=== PATIENT | male | born 1970 | race Caucasian/White ===

== ENCOUNTER 2017-08-08 07:14 | Observation (INO) | payer OTHER ==
[2017-08-08] MEDS ORDERED: SODIUM CHLORIDE 0.9% 1,000 ML IV STA (07:49)
[2017-08-08] MEDS: SODIUM CHLORIDE 0.9% 1,000 ML IV STA ×2 (08:02→12:31)
[2017-08-08] MEDS: ONDANSETRON 4 MG/2 ML VIAL IVP STA ×2 (08:03→08:43)
[2017-08-08] MEDS: MORPHINE SULFATE 2 MG/ML SYRINGE IV STA ×3 (08:04→10:51)
[2017-08-08 08:06] LABS: Basophils % (A) 1 %; Eosinophils # (A) 0.1 k/uL (0-0.7); Eosinophils % (A) 2 %; HCT 46.1 % (39.0-53.0); HGB 15.6 gm/dL (13.0-17.5); Lymphocytes # (A) 1.1 k/uL (1.0-4.8); Lymphocytes % (A) 18 %; MCH 29.6 pg (25.0-35.0); MCHC 33.9 g/dL (31.0-37.0); MCV 87.4 fL (80.0-100.0); Mean Platelet Volume 6.8; Monocytes # (A) 0.4 k/uL (0-1.0); Monocytes % (A) 6 %; Neutrophils # (A) 4.1 k/uL (1.3-7.7); Neutrophils % (A) 71 %; Platelet Count 174 k/uL (150-450); RBC 5.27 m/uL (4.30-5.90); RDW 13.4 % (11.5-15.5); WBC 5.8 k/uL (3.8-10.6)
[2017-08-08 08:17] LABS: ALT 54 U/L (21-72); AST 34 U/L (17-59); Albumin 4.3 g/dL (3.5-5.0); Alkaline Phosphatase 84 U/L (38-126); Amylase 67 U/L (30-110); Anion Gap 13 mmol/L; Blood Urea Nitrogen 16 mg/dL (9-20); Calcium 9.5 mg/dL (8.4-10.2); Carbon Dioxide 23 mmol/L (22-30); Chloride 104 mmol/L (98-107); Glucose 143 mg/dL (74-99); Lipase 281 U/L (23-300); Potassium 3.9 mmol/L (3.5-5.1); Sodium 140 mmol/L (137-145); Total Bilirubin 0.9 mg/dL (0.2-1.3); Total Protein 6.8 g/dL (6.3-8.2)
--- NOTE | 2017-08-08 08:29 | XR ---
EXAMINATION TYPE: XR abdomen acute w cxr DATE OF EXAM: 08/08/2017 COMPARISON: NONE HISTORY: Right flank pain, constipation and history of colon resection TECHNIQUE: Single view chest radiograph and 2 view abdominal radiographs were performed. FINDINGS: CHEST: Median sternotomy wires are present. No focal consolidation, pleural effusion or pneumothorax. Cardiomediastinal silhouette is within normal limits. Osseous structures are intact. There is dehisc ence of some of the mediastinal wires incidentally noted. ABDOMEN: Surgical clips are seen within the left hemipelvis and right upper quadrant. No evidence of dilated large or small bowel. No differential air-fluid levels. Few air-filled nondilated loops of sm all bowel are clustered within the left lower quadrant. These are again nondilated and nonspecific. N o pneumoperitoneum. No abnormal calcifications within the abdomen or pelvis. Phleboliths are noted wi thin the low pelvis. Mild femoral acetabular arthropathy. Probable left femoral bone islands. IMPRESSION: 1. No acute cardiopulmonary process. 2. Postsurgical changes of the abdomen. Nonobstructive bowel gas pattern.
[2017-08-08] MEDS ORDERED: SODIUM CHLORIDE 0.9% 1,000 ML IV ONE ×2 (09:11→13:04)
--- NOTE | 2017-08-08 09:14 | ED ---
Abdominal Pain HPI - General Chief Complaint: Abdominal Pain Stated Complaint: Back Pain Time Seen by Provider: 08/08/17 07:46 Source: patient Mode of arrival: wheelchair Limitations: no limitations - History of Present Illness Initial Comments: 46 years old male comes in with severe abdominal pain and right flank pain and pain in the right lower quadrant area it's 10 over 10 he is very nauseous and is not even able to talk he does have a history of gallbladder disease and status post cholecystectomy history of adrenal mass and colon surgery. No headaches no neck neck stiffness no chest pain or shortness of breath is at this point - Related Data Home Medications Medication Instructions Recorded Confirmed Atorvastatin [Lipitor] 20 mg PO HS 08/08/17 08/08/17 Cholecalciferol [Vitamin D3] 5,000 unit PO DAILY 08/08/17 08/08/17 Gabapentin [Neurontin] 300 mg PO BID 08/08/17 08/08/17 Allergies Allergy/AdvReac Type Severity Reaction Status Date / Time No Known Allergies Allergy Verified 08/08/17 07:44 Review of Systems ROS Statement: Those systems with pertinent positive or pertinent negative responses have been documented in the HPI. ROS Other: All systems not noted in ROS Statement are negative. Past Medical History Additional Past Medical History / Comment(s): Myesthenia Gravis, Spinal stenosis History of Any Multi-Drug Resistant Organisms: None Reported Past Surgical History: Cholecystectomy Additional Past Surgical History / Comment(s): Attenuated FAP, colon removed, right adrenal gland removed Past Psychological History: No Psychological Hx Reported Smoking Status: Never smoker Past Alcohol Use History: None Reported General Exam - General Exam Comments Initial Comments: General: The patient is awake and alert, in severe distress pain is 10 over 10 Skin: Skin is warm and dry and no rashes or lesions are noted. Eye: Pupils are equal, round and reactive to light, extra-ocular movements are intact; there is normal conjunctiva bilaterally. Ears, nose, mouth and throat: There are moist mucous membranes and no oral lesions. Neck: The neck is supple, there is no tenderness or JVD. Cardiovascular: There is a regular rate and rhythm. No murmur, rub or gallop is appreciated. Respiratory: To auscultation bilateral, no wheezing no rhonchi no distress respiratory shah noticed Gastrointestinal: Very tender in the right Paraumbilical area him a mildly tender over the right flank area positive bowel sounds no guarding no rebounds Back: There is no tenderness to palpation in the midline. There is no obvious deformity. Musculoskeletal: Normal ROM, no tenderness, There is no pedal edema. There is no calf tenderness or swelling. No cords were appreciated. Neurological: CN II-XII intact, Cranial nerves III through XII are intact. There are no obvious motor or sensory deficits. Coordination appears grossly intact. Speech is normal. Psychiatric: Cooperative, appropriate mood & affect, normal judgment. Limitations: no limitations Course Vital Signs 08/08/17 08/08/17 07:25 08:45 Temperature 97.9 F Pulse Rate 61 77 Respiratory 18 20 Rate Blood Pressure 121/79 137/79 O2 Sat by Pulse 99 99 Oximetry Shouldn't is reassessed at 11/27/2013 T he still in a lot of pain on the right side of the abdomen CT of the abdomen and pelvis was reviewed noticed right adrenal gland surgically removed left adrenal gland has gotten bigger in size compared to the old exam CBC looks fine and lactate is 2.3, BS metabolic panel looks normal gallbladder surgically removed in the past. Centering he has increased pain him can inquire and give him some more morphine and I plan to speak with the Dr. Delmar Mendenhall his primary care physician considering his pain he would need to be admitted with a surgical consult. She has gotten his care at the [facility] in the past Medical Decision Making - Lab Data Result diagrams: 08/08/17 07:55 08/08/17 07:55 Lab Results 08/08/17 08/08/17 08/08/17 Range/Units 07:55 07:55 07:55 WBC 5.8 (3.8-10.6) k/uL RBC 5.27 (4.30-5.90) m/uL Hgb 15.6 (13.0-17.5) gm/dL Hct 46.1 (39.0-53.0) % MCV 87.4 (80.0-100.0) fL MCH 29.6 (25.0-35.0) pg MCHC 33.9 (31.0-37.0) g/dL RDW 13.4 (11.5-15.5) % Plt Count 174 (150-450) k/uL Neutrophils % 71 % Lymphocytes % 18 % Monocytes % 6 % Eosinophils % 2 % Basophils % 1 % Neutrophils # 4.1 (1.3-7.7) k/uL Lymphocytes # 1.1 (1.0-4.8) k/uL Monocytes # 0.4 (0-1.0) k/uL Eosinophils # 0.1 (0-0.7) k/uL Basophils # 0.0 (0-0.2) k/uL Sodium 140 (137-145) mmol/L Potassium 3.9 (3.5-5.1) mmol/L Chloride 104 (98-107) mmol/L Carbon Dioxide 23 (22-30) mmol/L Anion Gap 13 mmol/L BUN 16 (9-20) mg/dL Creatinine 0.92 (0.66-1.25) mg/dL Est GFR (CKD-EPI)AfAm >90 (>60 ml/min/1.73 sqM) Est GFR (CKD-EPI)NonAf >90 (>60 ml/min/1.73 sqM) Glucose 143 H (74-99) mg/dL Plasma Lactic Acid José 2.3 H* (0.7-2.0) mmol/L Calcium 9.5 (8.4-10.2) mg/dL Total Bilirubin 0.9 (0.2-1.3) mg/dL AST 34 (17-59) U/L ALT 54 (21-72) U/L Alkaline Phosphatase 84 (38-126) U/L Total Protein 6.8 (6.3-8.2) g/dL Albumin 4.3 (3.5-5.0) g/dL Amylase 67 (30-110) U/L Lipase 281 (23-300) U/L Disposition Clinical Impression: Abdominal pain Disposition: ADMITTED IP TO THIS HOSP Referrals: Delmar Mendenhall DO [Primary Care Provider] - 1-2 days
--- NOTE | 2017-08-08 10:25 | CT ---
EXAMINATION TYPE: CT abdomen pelvis w con DATE OF EXAM: 08/08/2017 COMPARISON: 01/01/2012 INDICATION: Flank pain, abdominal pain DLP: 1193.0 mGycm, Automated exposure control for dose reduction was used. CONTRAST: 100 mL of Isovue 300. Study performed without Oral Contrast TECHNIQUE: Axial images were obtained from above the diaphragm to the pubic rami in the axial plane a t 5 mm thick sections. Reconstructed images are reviewed on the computer in the coronal plane. FINDINGS: Limited CT sections are obtained the lung bases. The lung bases are clear. CT ABDOMEN: Liver: Normal Spleen: Normal. Splenule is medial to the spleen and anterior lateral to the spleen. Pancreas: Normal Adrenal glands: Left adrenal gland is a bilobed with somewhat heterogenous lower density centrally. T he lobes measure 1.7 and 1.4 cm in size. The right adrenal gland appears absent. Multiple surgical cl ips are present. Gallbladder: Surgically absent. Kidneys: No masses are evident. No hydronephrosis is present. There is a cyst on the medial upper l eft kidney measuring 1.8 cm and 4 Hounsfield units. A peripelvic cyst is suspected in the upper pole left kidney measuring approximately 2.8 cm. Right kidney appears to have a small cortical renal cyst measuring 1.1 cm and 15 Hounsfield units. A 0.2 cm nonobstructing superior medial left renal stone i s present. Aorta: Normal Inferior vena cava: Normal. CT PELVIS: Visualized Loops of bowel within the abdomen and pelvis are normal. Near complete colectomy has bee n performed. Postsurgical changes at the rectosigmoid junction. Appendix: Not identified Urinary bladder: Normal. Genitourinary structures: Prostate is prominent. Osseous structures: No suspicious lytic or sclerotic lesions. COMPARISON: The right adrenal gland has been resected over the interval. The left adrenal gland has i ncreased in size over the interval. IMPRESSIONS: 1. Increasing size of a multilobed left adrenal gland. 2. Status post right adrenal gland resection
[2017-08-08] MEDS ORDERED: ACETAMINOPHEN TAB 325 MG TAB PO PRN (10:51)
[2017-08-08] MEDS ORDERED: ONDANSETRON 4 MG/2 ML VIAL IVP PRN ×2 (10:51→12:28)
[2017-08-08] MEDS ORDERED: MORPHINE SULFATE 2 MG/ML SYRINGE IV PRN (10:51)
[2017-08-08] MEDS ORDERED: NALOXONE 0.4 MG/ML 1 ML VIAL IV PRN (10:51)
[2017-08-08 11:05] LABS: Appearance,Urine Clear (Clear); Bilirubin,Urine Negative (Negative); Blood,Urine Large (Negative); Color,Urine Yellow; Glucose,Urine (UA) Negative (Negative); Ketones,Urine 1+ (Negative); Leukocyte Esterase,Urine Negative (Negative); Mucus,Urine Rare /hpf; Nitrite,Urine Negative (Negative); PH, Urine 7.5 (5.0-8.0); Protein,Urine Trace (Negative); RBC,Urine >182 /hpf (0-5); Specific Gravity,Urine 1.034 (1.001-1.035); Urobilinogen,Urine <2.0 mg/dL (<2.0); WBC,Urine 1 /hpf (0-5)
[2017-08-08] MEDS: SODIUM CHLORIDE 0.9% 1,000 ML IV SCH ×2 (14:20→20:29)
[2017-08-08] MEDS ORDERED: KETOROLAC 30 MG/ML 1 ML VIAL IVP STA (16:09)
--- NOTE | 2017-08-08 16:17 | P.GSCN ---
History of Present Illness Consult date: 08/08/17 History of present illness: 46-year-old male presents to the emergency department with complaints of right flank and right abdominal pain. He states that this pain suddenly began this morning and was not resolving. He does have a medical history significant for FAP. He has had a near total colectomy, cholecystectomy and adrenalectomy secondary to this. He states he is followed very closely at the [facility] for [facility]. He states that since admission, his pain has improved. He denies any nausea and vomiting. He denies any change in bowel function. He denies any febrile episodes. He denies any change in urinary frequency. He does admit to having darker urine recently. He denies any shortness of breath or chest pain. He has no additional complaints at this time. CT of the abdomen and pelvis was performed in the emergency department with no significant finding for the acute abdominal pain. He does have left adenoma enlargement that is being followed as an outpatient per the patient. He states he has been followed for the last 6 years at the [facility]. He is noted to have a nonobstructive nephrolithiasis in the left ureter. Review of Systems All systems: negative Past Medical History Past Medical History: GERD/Reflux Additional Past Medical History / Comment(s): Attenuated FAP (familial adenomatous polyposis), gastric adenomatous polyps, rectal polyps, R benign adrenal mass with gland surgically removed, myesthenia Gravis in remission since 1997, spinal stenosis with chronic low back pain-seen in [facility] pain clinic, migraines, past bilateral hand fractures. History of Any Multi-Drug Resistant Organisms: None Reported Past Surgical History: Cholecystectomy Additional Past Surgical History / Comment(s): Subtotal colectomy d/t attenuated FAP, right adrenal gland removed for benign mass, EGDs, sigmoidoscopies, thymectomy, deviated septal surgery. Past Anesthesia/Blood Transfusion Reactions: No Reported Reaction Smoking Status: Never smoker - Past Family History Father Family Medical History: Cancer, Musculoskeletal Disorder, Neurologic Disorder Additional Family Medical History / Comment(s): Father had colon cancer and parkinson's dx. He is . Mother Family Medical History: Cancer Additional Family Medical History / Comment(s): Mother from pancreatic cancer. Medications and Allergies Home Medications Medication Instructions Recorded Confirmed Type Atorvastatin [Lipitor] 20 mg PO HS 08/08/17 08/08/17 History Cholecalciferol [Vitamin D3] 5,000 unit PO DAILY 08/08/17 08/08/17 History Gabapentin [Neurontin] 300 mg PO BID 08/08/17 08/08/17 History Allergies Allergy/AdvReac Type Severity Reaction Status Date / Time No Known Allergies Allergy Verified 08/08/17 07:44 Surgical - Exam Osteopathic Statement: *. No significant issues noted on an osteopathic structural exam other than those noted in the History and Physical/Consult. Vital Signs Temp Pulse Resp BP Pulse Ox 97.9 F 61 18 121/79 99 08/08/17 07:25 08/08/17 07:25 08/08/17 07:25 08/08/17 07:25 08/08/17 07:25 - General well nourished, no distress - Eyes PERRL, normal ocular movement - ENT normal mucosa, no hearing loss - Respiratory No difficulty with respiration - Abdomen Soft, nontender, nondistended, no rebound, no guarding - Integumentary no rash, no growths - Neurologic normal sensation - Psychiatric oriented to time, oriented to person, oriented to place, speech is normal Results - Labs 08/08/17 07:55 08/08/17 07:55 Abnormal Lab Results - Last 24 Hours (Table) 08/08/17 08/08/17 08/08/17 Range/Units 07:18 07:55 07:55 Glucose 143 H (74-99) mg/dL Plasma Lactic Acid José 2.3 H* (0.7-2.0) mmol/L Urine Protein Trace H (Negative) Urine Ketones 1+ H (Negative) Urine Blood Large H (Negative) Urine RBC >182 H (0-5) /hpf Urine Mucus Rare H (None) /hpf 08/08/17 Range/Units 11:52 Glucose (74-99) mg/dL Plasma Lactic Acid José 2.4 H* (0.7-2.0) mmol/L Urine Protein (Negative) Urine Ketones (Negative) Urine Blood (Negative) Urine RBC (0-5) /hpf Urine Mucus (None) /hpf Microbiology - Last 24 Hours (Table) 08/08/17 07:18 Urine Culture - Preliminary Urine,Clean Catch Diabetes panel 08/08/17 Range/Units 07:55 Sodium 140 (137-145) mmol/L Potassium 3.9 (3.5-5.1) mmol/L Chloride 104 (98-107) mmol/L Carbon Dioxide 23 (22-30) mmol/L BUN 16 (9-20) mg/dL Creatinine 0.92 (0.66-1.25) mg/dL Glucose 143 H (74-99) mg/dL Calcium 9.5 (8.4-10.2) mg/dL AST 34 (17-59) U/L ALT 54 (21-72) U/L Alkaline Phosphatase 84 (38-126) U/L Total Protein 6.8 (6.3-8.2) g/dL Albumin 4.3 (3.5-5.0) g/dL Calcium panel 08/08/17 Range/Units 07:55 Calcium 9.5 (8.4-10.2) mg/dL Albumin 4.3 (3.5-5.0) g/dL Pituitary panel 08/08/17 Range/Units 07:55 Sodium 140 (137-145) mmol/L Potassium 3.9 (3.5-5.1) mmol/L Chloride 104 (98-107) mmol/L Carbon Dioxide 23 (22-30) mmol/L BUN 16 (9-20) mg/dL Creatinine 0.92 (0.66-1.25) mg/dL Glucose 143 H (74-99) mg/dL Calcium 9.5 (8.4-10.2) mg/dL Adrenal panel 08/08/17 Range/Units 07:55 Sodium 140 (137-145) mmol/L Potassium 3.9 (3.5-5.1) mmol/L Chloride 104 (98-107) mmol/L Carbon Dioxide 23 (22-30) mmol/L BUN 16 (9-20) mg/dL Creatinine 0.92 (0.66-1.25) mg/dL Glucose 143 H (74-99) mg/dL Calcium 9.5 (8.4-10.2) mg/dL Total Bilirubin 0.9 (0.2-1.3) mg/dL AST 34 (17-59) U/L ALT 54 (21-72) U/L Alkaline Phosphatase 84 (38-126) U/L Total Protein 6.8 (6.3-8.2) g/dL Albumin 4.3 (3.5-5.0) g/dL - Imaging CT scan - abdomen: report reviewed, image reviewed (CT of the abdomen and pelvis was reviewed. No significant acute findings noted. Does have a history of cholecystectomy and colectomy which is evident on the CT. He does have an enlarged left-sided adrenal gland.) CT scan - pelvis: report reviewed, image reviewed Assessment and Plan (1) Abdominal pain Narrative/Plan: 46-year-old male with right-sided flank and abdominal pain - The patient does have a persistent lactic acidosis, continue IV fluid resuscitation - There is no acute finding on CT of the abdomen and pelvis for source of abdominal pain - UA was evaluated with a large amount of blood, with the finding of nonobstructive nephrolithiasis, it is possible that the patient is suffering from nephrolithiasis. Secondary to this we will continue high-rate IV fluids and attempt and control with Toradol - Keep patient on clear liquid diet until pain is well-controlled - No plan for any acute surgical intervention - Will continue to follow Thank you for this consultation, I look forward in providing in this patient's care Current Visit: Yes Status: Acute Code(s): R10.9 - UNSPECIFIED ABDOMINAL PAIN SNOMED Code(s): 14344799
[2017-08-08] MEDS ORDERED: KETOROLAC 30 MG/ML 1 ML VIAL IVP PRN (17:42)
--- NOTE | 2017-08-08 20:12 | P.HPIM ---
History of Present Illness H&P Date: 08/08/17 Chief Complaint: Abdominal pain Patient is a 46-year-old male with a known history of familial adenomatous polyposis status post subtotal colectomy, right atrial gland resection due to benign mass, myasthenia gravis status post thymectomy and other multiple medical problems came to ER with complaints of abdominal pain started around 3 AM this morning. Pain has been constant and she presented to hospital. Abdominal pain mainly in the right flank area radiating down to the groin. 10 out of 10. Patient felt very nauseous unable to talk. Otherwise no fever no chills. No dysuria. Patient does have dark-colored urine and a urinalysis in the ER was found to have multiple RBCs. Currently pain is improved. Patient was found have lactic acidosis with level II.3 and is being hydrated No commerce of chest pain or shortness of breath. No nausea vomiting or abdominal pain currently Acute abdominal series showed no acute process CT abdomen pelvis showed increasing size of a right multilobe adrenal gland Review of Systems Constitutional: Patient denies any fever or chills . No generalized weakness or weight loss. Abdomen: Patient denied nausea vomiting and diarrhea and abdominal pain. Cardiovascular: Patient denies any chest pain or short of breath no palpitations. Respiratory: patient denied any cough is from production. No shortness of breath Neurologic: Patient denied any numbness or tingling headache. Musculoskeletal: Patient denies any complaints of joint swelling or deformity. Skin: Negative Psychiatric: Negative Endocrine: No heat or cold intolerance. No recent weight gain. Genitourinary: No dysuria or hematuria. All other 14 point ROS negative except the above Past Medical History Past Medical History: GERD/Reflux Additional Past Medical History / Comment(s): Attenuated FAP (familial adenomatous polyposis), gastric adenomatous polyps, rectal polyps, R benign adrenal mass with gland surgically removed, myesthenia Gravis in remission since 1997, spinal stenosis with chronic low back pain-[facility], migraines, past bilateral hand fractures. History of Any Multi-Drug Resistant Organisms: None Reported Past Surgical History: Cholecystectomy Additional Past Surgical History / Comment(s): Subtotal colectomy d/t attenuated FAP, right adrenal gland removed for benign mass, EGDs, sigmoidoscopies, thymectomy, deviated septal surgery. Past Anesthesia/Blood Transfusion Reactions: No Reported Reaction Smoking Status: Never smoker - Past Family History Father Family Medical History: Cancer, Musculoskeletal Disorder, Neurologic Disorder Additional Family Medical History / Comment(s): Father had colon cancer and parkinson's dx. He is . Mother Family Medical History: Cancer Additional Family Medical History / Comment(s): Mother from pancreatic cancer. Medications and Allergies Home Medications Medication Instructions Recorded Confirmed Type Atorvastatin [Lipitor] 20 mg PO HS 08/08/17 08/08/17 History Cholecalciferol [Vitamin D3] 5,000 unit PO DAILY 08/08/17 08/08/17 History Gabapentin [Neurontin] 300 mg PO BID 08/08/17 08/08/17 History Allergies Allergy/AdvReac Type Severity Reaction Status Date / Time No Known Allergies Allergy Verified 08/08/17 07:44 Physical Exam Vitals: Vital Signs Temp Pulse Pulse Resp BP BP Pulse Ox 08/08/17 14:43 97.7 F 71 18 123/75 98 08/08/17 11:59 98.8 F 77 18 116/68 99 08/08/17 10:56 97.0 F L 74 20 127/68 99 08/08/17 08:45 77 20 137/79 99 08/08/17 07:25 97.9 F 61 18 121/79 99 Intake and Output 08/08/17 08/08/17 08/08/17 06:59 14:59 22:59 Intake Total 1000 Balance 1000 Intake: Intake, IV Titration 1000 Amount Sodium Chloride 0.9% 1, 1000 000 ml @ 999 mls/hr IV . Q1H1M ONE Rx#:[id number] Other: Weight 104.326 kg PHYSICAL EXAMINATION: Patient is lying in the bed comfortably, no acute distress, awake alert and oriented.. HEENT: Normocephalic. Neck is supple. Pupils reactive. Nostrils clear. Oral cavity is moist. Ears reveal no drainage. Neck reveals no JVD, carotid bruits, or thyromegaly. CHEST EXAMINATION: Trachea is central. Symmetrical expansion. Lung granados clear to auscultation and percussion. CARDIAC: Normal S1, S2 with no gallops. No murmurs ABDOMEN: Soft. Bowel sounds normal. No organomegaly. No abdominal bruits. Extremities: reveal no edema. No clubbing or cyanosis Neurologically awake, alert, oriented x3 with well-coordinated movements. No focal deficits noted Skin: No rash or skin lesions. Psychiatric: Coperative. Nonsuicidal Musculoskeletal: No joint swelling or deformity. Normal range of motion. Results CBC & Chem 7: 08/08/17 07:55 08/08/17 07:55 Labs: Abnormal Lab Results - Last 24 Hours (Table) 08/08/17 08/08/17 08/08/17 Range/Units 07:18 07:55 07:55 Glucose 143 H (74-99) mg/dL Plasma Lactic Acid José 2.3 H* (0.7-2.0) mmol/L Urine Protein Trace H (Negative) Urine Ketones 1+ H (Negative) Urine Blood Large H (Negative) Urine RBC >182 H (0-5) /hpf Urine Mucus Rare H (None) /hpf 08/08/17 Range/Units 11:52 Glucose (74-99) mg/dL Plasma Lactic Acid José 2.4 H* (0.7-2.0) mmol/L Urine Protein (Negative) Urine Ketones (Negative) Urine Blood (Negative) Urine RBC (0-5) /hpf Urine Mucus (None) /hpf Thrombosis Risk Factor Assmnt - DVT/VTE Prophylaxis DVT/VTE Prophylaxis: Pharmacologic Prophylaxis ordered - Choose All That Apply Any of the Below Risk Factors Present?: Yes Each Factor Represents 1 point: Age 41-60 years, Obesity (BMI >25) Other Risk Factors: No Other congenital or acquired thrombophilia - If yes, enter type in comment: No Thrombosis Risk Factor Assessment Total Risk Factor Score: 2 Thrombosis Risk Factor Assessment Level: Low Risk Assessment and Plan Assessment: Acute abdominal pain right lower quadrant radiating down to the groin likely due to nephrolithiasis. CT abdomen pelvis showed no evidence of obstructing stone. Possibly patient might have passed stone with evidence of multiple RBCs in the urinalysis. Gen. surgery was consulted for further evaluation. Lactic acidosis 2.3 History of right ureteral gland removed for benign mass FAP status post subtotal colectomy Myasthenia gravis with history of thymectomy GERD Father had colon cancer DVT prophylaxis Plan: Patient will be continued on IV fluids and pain management with IV Toradol and continue to follow lactic acid level. Continue the symptomatic management and follow closely. General surgery was consulted. Further recommendations based on the clinical course. Time with Patient: Greater than 30
[2017-08-08] MEDS: GABAPENTIN 300 MG CAP PO SCH (20:30)
[2017-08-08] MEDS ORDERED: ATORVASTATIN 20 MG TAB PO SCH (21:00)
[2017-08-08] MEDS ORDERED: SODIUM CHLORIDE 0.9% 500 ML IV ONE (22:47)
[2017-08-09] MEDS: SODIUM CHLORIDE 0.9% 1,000 ML IV SCH ×2 (03:05→08:01)
[2017-08-09] MEDS ORDERED: SODIUM CHLORIDE 0.9% 500 ML IV ONE (03:34)
[2017-08-09 06:08] VITALS: RESP 16
[2017-08-09] MEDS: GABAPENTIN 300 MG CAP PO SCH (08:00)
[2017-08-09] MEDS ORDERED: CHOLECALCIFEROL 1,000 UNIT TAB PO SCH (09:00)
[2017-08-09] MEDS ORDERED: PANTOPRAZOLE 40 MG/10 ML VIAL IV SCH (09:00)
--- NOTE | 2017-08-09 12:41 | P.PN ---
Subjective Progress Note Date: 08/09/17 Patient seen and examined at bedside. States his abdominal pain is relieved and his flank pain is relieved. He was advanced to a regular diet and is tolerating that. He has no additional complaints at this time. Objective - Vital Signs Vital signs: Vital Signs Temp 99.7 F H 08/09/17 06:07 Pulse 80 08/09/17 06:07 Resp 16 08/09/17 06:07 BP 102/57 08/09/17 06:07 Pulse Ox 94 L 08/09/17 06:07 Intake & Output 08/08/17 08/09/17 08/09/17 18:59 06:59 18:59 Intake Total 1000 200 320 Balance 1000 200 320 Weight 104.326 kg 104.326 kg Intake: Intake, IV Titration 1000 Amount Sodium Chloride 0.9% 1, 1000 000 ml @ 999 mls/hr IV . Q1H1M ONE Rx#:[id number] Oral 200 320 Other: # Voids 1 - Constitutional General appearance: Present: cooperative - EENT ENT: Present: hearing grossly normal - Respiratory Details: No difficulty with respiration - Gastrointestinal Gastrointestinal Comment(s): Soft, nontender, nondistended, no rebound, no guarding, no CVA tenderness - Psychiatric Psychiatric: Present: A&O x's 3, appropriate affect - Labs CBC & Chem 7: 08/08/17 07:55 08/08/17 07:55 Labs: Microbiology - Last 24 Hours (Table) 08/08/17 07:18 Urine Culture - Preliminary Urine,Clean Catch Assessment and Plan (1) Abdominal pain Narrative/Plan: 46-year-old male with right-sided flank and abdominal pain - Lactic acidosis has resolved - There is no acute finding on CT of the abdomen and pelvis for source of abdominal pain - Patient feels comfortable after Toradol administration. Pain is likely secondary to nephrolithiasis. - Continue regular diet at this point. - No plan for any acute surgical intervention - Stable for discharge per surgery Current Visit: Yes Status: Acute Code(s): R10.9 - UNSPECIFIED ABDOMINAL PAIN SNOMED Code(s): 74595885
[2017-08-09 15:02] VITALS: BP 105/56; PULSE 79; TEMP 98.7
--- NOTE | 2017-08-09 22:21 | P.DS ---
Providers Date of admission: 08/08/17 10:51 Expected date of discharge: 08/09/17 Attending physician: Yamilet Daniels Consults: 08/08/17 10:51 Consult Physician Stat Consulting Provider: Go Major Consult Reason/Comments: Right-sided abdominal pain Do you want consulting provider notified?: Yes Primary care physician: [facility] Hospital Course: Discharge diagnosis Acute abdominal pain right lower quadrant radiating down to the groin likely due to nephrolithiasis. CT abdomen pelvis showed no evidence of obstructing stone. Possibly patient might have passed stone with evidence of multiple RBCs in the urinalysis. Gen. surgery was consulted for further evaluation. No intervention required. Lactic acidosis 2.3 History of right ureteral gland removed for benign mass FAP status post subtotal colectomy Myasthenia gravis with history of thymectomy GERD Father had colon cancer DVT prophylaxis Hospital course Patient is a 46-year-old male with a known history of familial adenomatous polyposis status post subtotal colectomy, right atrial gland resection due to benign mass, myasthenia gravis status post thymectomy and other multiple medical problems came to ER with complaints of abdominal pain started around 3 AM this morning. Pain has been constant and she presented to hospital. Abdominal pain mainly in the right flank area radiating down to the groin. 10 out of 10. Patient felt very nauseous unable to talk. Otherwise no fever no chills. No dysuria. Patient does have dark-colored urine and a urinalysis in the ER was found to have multiple RBCs. Currently pain is improved. Patient was found have lactic acidosis with level II.3 and is being hydrated No commerce of chest pain or shortness of breath. No nausea vomiting or abdominal pain currently Acute abdominal series showed no acute process CT abdomen pelvis showed increasing size of a right multilobe adrenal gland Plan: Patient was continued on IV fluids and pain management with IV Toradol and continue to follow lactic acid level. Continue the symptomatic management and follow closely. Patient currently denied any abdominal pain. Is symptomatic. General surgery was consulted. No surgical intervention recommended. Otherwise patient is stable to be discharged home. PHYSICAL EXAMINATION: Patient is lying in the bed comfortably, no acute distress, awake alert and oriented.. HEENT: Normocephalic. Neck is supple. Pupils reactive. Nostrils clear. Oral cavity is moist. Ears reveal no drainage. Neck reveals no JVD, carotid bruits, or thyromegaly. CHEST EXAMINATION: Trachea is central. Symmetrical expansion. Lung granados clear to auscultation and percussion. CARDIAC: Normal S1, S2 with no gallops. No murmurs ABDOMEN: Soft. Bowel sounds normal. No organomegaly. No abdominal bruits. Extremities: reveal no edema. No clubbing or cyanosis Neurologically awake, alert, oriented x3 with well-coordinated movements. No focal deficits noted Skin: No rash or skin lesions. Psychiatric: Coperative. Nonsuicidal Musculoskeletal: No joint swelling or deformity. Normal range of motion. Vital Signs - 24 hr 08/08/17 08/08/17 08/09/17 22:40 23:35 03:20 Temperature 97.6 F Pulse Rate [ 80 Pulse Oximetery ] Respiratory 15 Rate Blood Pressure 96/55 106/61 102/57 [Right Arm] O2 Sat by Pulse 94 L Oximetry 08/09/17 08/09/17 06:07 15:00 Temperature 99.7 F H 98.7 F Pulse Rate [ 80 79 Pulse Oximetery ] Respiratory 16 16 Rate Blood Pressure 102/57 105/56 [Right Arm] O2 Sat by Pulse 94 L 95 Oximetry Patient Condition at Discharge: Stable Plan - Discharge Summary Discharge Rx Participant: No New Discharge Prescriptions: Continue Gabapentin [Neurontin] 300 mg PO BID Cholecalciferol [Vitamin D3] 5,000 unit PO DAILY Atorvastatin [Lipitor] 20 mg PO HS Discharge Medication List Atorvastatin [Lipitor] 20 mg PO HS 08/08/17 [History] Cholecalciferol [Vitamin D3] 5,000 unit PO DAILY 08/08/17 [History] Gabapentin [Neurontin] 300 mg PO BID 08/08/17 [History] Follow up Appointment(s)/Referral(s): Delmar Mendenhall DO [Doctor of Osteopathic Medicine] - 1-2 days Patient Instructions/Handouts: Acute Abdominal Pain (DC) Activity/Diet/Wound Care/Special Instructions: activity as tolerated Discharge Disposition: HOME SELF-CARE
== END 2017-08-09 15:57 | disposition home or self-care (01) ==
LOC: EC 07:14 → 4MS4W 10:51
PROVIDERS: ADMIT Hospitalist; ATTEND Hospitalist
DX: R10.31 Right lower quadrant pain (principal); E87.2 Acidosis; G70.00 Myasthenia gravis without (acute) exacerbation; M48.00 Spinal stenosis, site unspecified; K21.9 Gastro-esophageal reflux disease without esophagitis; G89.29 Other chronic pain; E66.9 Obesity, unspecified; Z68.33 Body mass index [BMI] 33.0-33.9, adult; N20.0 Calculus of kidney; G43.909 Migraine, unspecified, not intractable, without status migrainosus; E27.9 Disorder of adrenal gland, unspecified; E89.6 Postprocedural adrenocortical (-medullary) hypofunction; Z86.010 Personal history of colon polyps; Z87.19 Personal history of other diseases of the digestive system; Z90.49 Acquired absence of other specified parts of digestive tract; Z79.899 Other long term (current) drug therapy; Z90.89 Acquired absence of other organs; Z80.0 Family history of malignant neoplasm of digestive organs; Z82.0 Family history of epilepsy and other diseases of the nervous system
CPT/HCPCS: 99285 ×2; 96374 ×2; 96375 ×4; 96376 ×5; 96361 ×7; 36415; 80053; 82150; 83605; 83690; 85025; 81001; 87086; 74022; 74177; G0378 ×2; J2405; J1885 ×2; J2270; C9113; Q9967

== ENCOUNTER → 2024-08-25 | Outpatient (CLI) | payer OTHER ==
--- NOTE | 2024-08-25 14:52 | CT ---
EXAMINATION TYPE: CT lumbar spine wo con DATE OF EXAM: 08/25/2024 2:41 PM COMPARISON: None CLINICAL INDICATION: Male, 54 years old with history of M54.50,M47.816 SPONDYLOSIS W/O MYELOPATHY OR RADIC; PHH, spondylosis TECHNIQUE: Unenhanced CT of the lumbar spine was performed. Bone and soft tissue window settings are submitted as well as coronal and sagittal reconstructions. CT DLP: [address] CTDI: mGy Automated exposure control for dose reduction was used. FINDINGS: The lumbar vertebral segments are normal in height and there is no fracture. There is a slight retrol isthesis of L5 on S1. There is mild degenerative disease at the T12/L1 and L1/L2 levels there is mild spondylosis. The disc spaces are well preserved throughout the lumbar region. The facet joints are intact. There are no large disc herniations. Secondary to circumferential disc bulge and mild thickening of ligamentum flavum, there is a mild to moderate spinal stenosis at the L4-5 level. There is no significant bony encroachment of the neural foramina. IMPRESSION: 1. Slight retrolisthesis of L5 on S1. 2. Mild degenerative disc disease at the thoracolumbar junction at T12/L1 and L1/L2 levels. 3. No large disc herniations 4. Mild to moderate spinal stenosis at the L4-5 level. [facility], , 08/25/2024 2:50 PM
== END | disposition home or self-care (01) ==
LOC: RADCTMAIN 14:21
PROVIDERS: ATTEND Orthopaedic Surgery
DX: M47.816 Spondylosis without myelopathy or radiculopathy, lumbar region (principal); M43.17 Spondylolisthesis, lumbosacral region; M48.061 Spinal stenosis, lumbar region without neurogenic claudication; M51.360 Other intervertebral disc degeneration, lumbar region with discogenic back pain only
CPT/HCPCS: 72131